=== PATIENT | female | born 1985 | race Asian ===

== ENCOUNTER 2023-01-10 21:01 | Emergency (ER) | payer OTHER, SELFPAY ==
[2023-01-10 21:02] VITALS: BP 105/78; PULSE 75; RESP 16; TEMP 36
[2023-01-10 21:04] VITALS: BP 105/78; PULSE 75; RESP 16; TEMP 36; BMI 23.2
--- NOTE | 2023-01-10 22:14 | EX.ED.VIS.EY ---
HPI History of Present Illness Chief Complaint: Eye Problem Detail of Chief Complaint: Trouble driving at night when cars are coming towards her Informant: patient and spouse/S.O. Onset/Context/Timing Location: Bilateral Eyes Onset: Month(s) (1.5 months) Context: Gradual Onset Timing: Intermittent Current Severity: Gone Maximum Severity: Moderate Worsened by: Driving at night Relieved by: Nothing Associated Symptoms Associated Symptoms - Eyes: Negative for Burning, Crusting, Drainage, Eyelid swelling, Foreign body sensation, Itching, Matting, Pain, Photophobia or Redness History of injury: No Visual correction: None Narrative Narrative: Patient is a 38-year-old woman who presents because of trouble driving at night. She particularly complains of difficulty when cars are coming towards her. This has been present for 1+ months. There is no history of trauma. She denies light sensitivity. She denies flashing lights. She denies drainage from her eye. Denies eye pain. She denies any recent illness. Prior similar symptoms: No Recent Illness/Hospitalization: No PFSH PFSH Medical History no medical history Home Medications NK 01/10/23 [History Last Taken Unknown] Allergy/AdvReac Type Severity Reaction Status Date / Time No Known Allergies Allergy Verified 01/10/23 21:02 Family History no significant family his Surgical History no surgical history Social History (Updated 01/10/23 @ 22:[address] Darrel Hector MD) household members: spouse and children Smoking Status: Never smoker substance use type: does not use ROS ROS ED Constitutional Constitutional ED: Denies chills, fever(s), subjective, sweats or weight loss Eyes Eyes: Reports change in vision bilateral; Denies blurry vision or diplopia ENT ENT ED: Denies ear pain, rhinorrhea or sore throat Neurologic Neurologic: Denies headache(s), paresthesias or weakness Hematologic/Lymphatic Hematologic/Lymphatic: Denies easy bleeding or easy bruising EXAM Physical Exam Const Vital Signs: 01/10/23 21:04 01/10/23 21:02 Temperature 96.8 F L 96.8 F L Temperature Source Temporal Temporal Pulse Rate 75 75 Respiratory Rate 16 16 Blood Pressure 105/78 105/78 Blood Pressure Mean 87 87 Positive well nourished and well developed General Appearance ED: well developed and NAD HEENT HEENT Narrative: Normocephalic. Ears normal. No preauricular lymphadenopathy. No dermatologic facial rash. There is no facial swelling. Nares patent with no discharge. Posterior pharynx is normal. atraumatic Nose: external nose normal Eyes Eyes Narrative: Pupils equal round reactive. Extraocular's intact. Sclera is anicteric. Conjunctive is pink. There is no nystagmus. Patient has cataracts. Difficult to see fundi without dilation. Cup-to-disc ratio appears normal. There is no papilledema. Neck no lymphadenopathy, supple and no JVD Resp normal respiratory effort Cardio regular rate and regular rhythm Extremity normal to inspection Neuro oriented x3, CN's II-XII intact bilaterally and moves all extremities Psych Psych Narrative: Mood and affect are normal. Skin no wounds MDM MDM MDM Narrative Medical decision making narrative: Patient's history and physical consistent with visual disturbance due to cataracts. We will give her referral to ophthalmology, Dr. Suarez and appropriate home-going instructions. History & Record Review Discussion w/independent historian: Patient and Significant other Discharge Plan Triage Chief Complaint: Eye Problem ED Provider: Darrel Hector Dx/Rx/DC Orders Clinical Impression: Bilateral cataracts Instructions: What Are Cataracts?, Cataracts: Your Evaluation Prescriptions: No Action NK Primary Care Provider: Care Physician,No Primary Referrals: Julianne Suarez MD [Med Staff - Active Staff] - 1-2 Weeks Care Physician,No Primary [Primary Care Provider] - Disposition Disposition: Home, Self Care
== END 2023-01-10 22:33 | disposition home or self-care (01) ==
PROVIDERS: Emergency Provider Emergency Medicine; Visit Provider Emergency Medicine
DX: H26.9 Unspecified cataract (principal)
CPT/HCPCS: 99282